=== PATIENT | female | born 1985 | race Caucasian/White ===

== ENCOUNTER → 2017-09-28 | Outpatient (CLI) | payer BC ==
[~2017-09-28] MED LIST: ACETAMINOPHEN-1 EAC1 PO; ACETAMINOPHEN325 M1 PO; AFRIN15 ML NS; AMBIEN 10 MG TA10 MG; AMITRIPTYLINE H10 M3 PO; AMOXICILLIN 50500 M1 PO; AMOXICILLIN 50500 MG PO; AMOXICILLIN875 MG PO; ANAPROX DS550 MG PO; ANUCORT-HC25 MG RE; APAP/CODEINE ELI5 M1 OR; ASPIR 8181 MG PO; AUGMENTIN 875875 MG PO; BUTALB-APAP-CA1 EACH PO; CARAFATE 1 GM TA1 G1 PO; CARAFATE1 GM/10 ML PO; CARISOPRODOL 3350 MG PO; CLONAZEPAM; CLONAZEPAM PO; COMPAZINE10 MG PO; COUMADIN 10MG T10 M1; COUMADIN 10MG T10 M1 PO; COUMADIN 3 MG TA3 M1; COUMADIN 5 MG TA5 M1 PO; COUMADIN PO; DARVOCET-N 1001 EACH PO; DEPAKOTE 250MG250 M1 PO; DEPAKOTE500 MG; DOXEPIN 10 MG C10 MG GT; DOXYCYCLINE 10100 MG PO; E-MYCIN333 MG PO; ERY-TAB500 MG PO; FIORICET 50-321 EACH PO; FIORICET OR; FISHOIL; FLAGYL500 MG; FLEXERIL PO; GENFIBROZIL; HYDROCODON-ACE1 EAC7 PO; HYDROCODONE-AP1 EAC6 PO; IBUPROFEN 800800 MG PO; K-DUR10 MEQ PO; KEPPRA 500 MG500 MG PO; LAMICTAL XR100 MG; LOPERAMIDE 2 MG2 MG PO; LOPID600 MG; LOVENOX; LOVENOX SC; MACROBID 100 M100 M1 PO; MEDROLDOSEPACK PO; MIDRIN CAPSULE1 CAP PO; NAPROSYN500 MG PO; NEURONTIN 300300 M1; NEURONTIN 300300 M1 PO; NEURONTIN800 MG; NOHOMEMEDICATIONS; NORCO 5-325 TA1 EAC1 PO; NORCO 5-325 TA1 EACH PO; OXECTA5 MG PO; OXYCODONE HCL5 M1 PO; PERCOCET 7.5-31 EACH PO; PHENADOZ25 MG PO; PHENERGAN 25 MG25 M1 PO; PREDNISONE 20 M20 M1 PO; PREDNISONE 5 MG5 M1 PO; PRILOSEC 20 MG20 MG PO; PRISTIQ50 MG PO; PROAIR HFA8.5 GM IH; PROTONIX40 M1 PO; REGLAN 10 MG TA10 MG; REGLAN 10 MG TA10 MG PO; ROBAXIN 750 MG750 M1 PO; ROXICODONE5 M1 PO; SAPHRIS5 MG SL; ULTRAM 50MG TAB50 MG PO; VEETIDS 500500 MG PO; VICODIN 5-5001 EACH PO; VIIBRYD40 MG; VITAMIN B-12250 MCG; VITAMIN D 5050000 I1; WELLBUTRIN 100100 M1 NG; ZANTAC; ZITHROMAX TRI-500 MG PO; ZOFRAN 4 MG ORAL4 MG PO; ZOFRAN ODT4 MG PO; ZOFRAN4 MG PO; ZOLOFT; ZOLOFT PO; ZOLOFT100 MG PO; ZOLOFT20 MG/1 ML; ZOVIRAX 5% OINT15 G1 TOP; ZPAK PO; [UNRECOGNIZED DRUG - OTHER]; [UNRECOGNIZED DRUG - REMARK]
== END ==
LOC: M.ULTRA 14:20
DX: M79.605 Pain in left leg (principal); M79.89 Other specified soft tissue disorders; Z96.651 Presence of right artificial knee joint; Z90.49 Acquired absence of other specified parts of digestive tract; Z90.710 Acquired absence of both cervix and uterus